=== PATIENT | male | born 1960 | race Two or more races ===

== ENCOUNTER 2019-12-03 16:02 | Emergency (ER) | payer MEDICAID ==
[~2019-12-03] VITALS: Ht 177.8 cm; Wt 68.0 kg
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
--- NOTE | 2019-12-03 16:19 | NUR ---
dr smart at bedside for eval.
--- NOTE | 2019-12-03 16:28 | NUR ---
pt to radiology for head and c spine ct scan via [facility].
[2019-12-03] MEDS ORDERED: ACETAMINOPHEN 325 MG TABLET PO ONE (16:30)
[2019-12-03] MEDS ORDERED: ACETAMINOPHEN ES 500 MG TABLET ONE (16:58)
[2019-12-03 17:45] VITALS: BP 132/85
--- NOTE | 2019-12-03 17:51 | NUR ---
[employer]ITCH[employer] CALLED FOR EXTRA FOOD TO GO REQUESTED
--- NOTE | 2019-12-03 18:19 | NUR ---
Patient discharged to home in stable condition. Written and verbal after care instructions given. Patient verbalizes understanding of instruction.
== END 2019-12-03 17:56 | disposition home or self-care (01) ==
LOC: ER 16:12
DX: S06.0X0A Concussion without loss of consciousness, initial encounter (principal); I10 Essential (primary) hypertension; V29.49XA Motorcycle driver injured in collision with other motor vehicles in traffic accident, initial encounter; Y93.55 Activity, bike riding; Y92.89 Other specified places as the place of occurrence of the external cause; Y99.8 Other external cause status
CPT/HCPCS: 70450-TC; 72125-TC